=== PATIENT | male | born 1960 | race Hispanic/Latino ===

== ENCOUNTER 2019-04-23 21:48 | Emergency (ER) | payer OTHER, SELFPAY ==
[2019-04-23 22:05] VITALS: BP 117/80; PULSE 77; RESP 15; TEMP 36.8; O2SAT 97; BMI 28.6
--- NOTE | 2019-04-23 23:48 | ED_ITS ---
HPI - URI/Sore Throat General Chief Complaint: Upper Respiratory Symptoms Stated Complaint: cough Time Seen by Provider: 04/23/19 23:48 Source: patient Mode of arrival: Family Vehicle Limitations: no limitations History of Present Illness HPI Narrative: The patient complains of cough for 12 days. The cough is nonproductive. He has rhinorrhea. He has no ear pain, or sore throat. He has no sinus pressure/pain. He is a nonsmoker. He has no history of asthma or allergies. He has had no recent fever or chills. He tells me this happens about this time of the year every year. He has taken Tylenol, no other m edications. He has no cardiac or respiratory history. He is on no prescription medications. He has no associated abdominal pain, or nausea vomiting. He has no chest pain. He has no leg pain or swelling. Related Data Home Medications Medication Instructions Recorded Confirmed ibuprofen [Advil] #0 07/06/16 02/22/18 Previous Rx's Medication Instructions Recorded benzonatate 200 mg capsule 200 mg PO TID PRN #20 cap 02/22/18 mometasone 50 mcg/actuation nasal 2 spray NASAL DAILY #17 gram 02/22/18 spray Allergies Allergy/AdvReac Type Severity Reaction Status Date / Time No Known Allergies Allergy Uncoded 02/22/18 10:04 Review of Systems Review of Systems ROS Unobtainable: All systems reviewed & are unremarkable except as noted in HPI and below Constitutional Constitutional: Denies chills, Denies fever(s) and Denies headache(s) Eyes Eyes: Denies eye discharge ENT Ears, Nose, Mouth, and Throat: Denies facial pain, Denies headache(s), Denies mouth lesions, Denies mouth pain, Denies nasal congestion and Denies neck pain Cardiovascular Cardiovascular: Denies chest pain and Denies palpitations Respiratory Respiratory: Denies cough and Denies wheezing Gastrointestinal Gastrointestinal: Denies abdominal pain and Denies dyspepsia Musculoskeletal Musculoskeletal: Denies back pain and Denies neck pain Integumentary/Breasts Skin/Breast: Denies rash and Denies sores Neurologic Neurologic: Denies headache(s) Endocrine Endocrine: Denies palpitations Allergic/Immunologic Allergic/Immunologic: Denies wheezing Patient History Medical History BPH (benign prostatic hyperplasia) (Chronic) Colitis (Chronic) Duodenal ulcer (Chronic ~2013) Gastric ulcer (Chronic ~2014) Kidney stones (Chronic) Migraines (Chronic ~2017) Tuberculosis (Chronic) Surgical History Anesthesia (Resolved) History of esophagogastroduodenoscopy (EGD) (~2013) Social History Smoking Status: Never smoker Smoking Status: Never smoker alcohol intake frequency: 0-2 drinks per day Substance Use Type: does not use Exam Initial Vital Signs Initial Vital Signs: Vital Signs Temperature 98.2 F 04/23/19 22:05 Pulse Rate 77 04/23/19 22:05 Respiratory Rate 15 04/23/19 22:05 Blood Pressure 117/80 04/23/19 22:05 Pulse Oximetry 97 04/23/19 22:05 Const General: cooperative and well developed Nutritional Appearance: well nourished HENCO Head: normocephalic and atraumatic Nose: external nose normal Face and sinus: sinuses nontender Mouth: oral mucosae normal and moist mucous membranes Teeth and gingiva: dentition normal Throat: tonsils normal, uvula midline and other (Clear postnasal drainage is present.) Eyes Conjunctivae: conjunctivae normal Neck Neck: No lymphadenopathy and No JVD Resp Effort & Inspection: normal respiratory effort and able to speak in complete sentences Auscultation: clear to auscultation bilaterally, no rales, no rhonchi and no wheezes Cardio Rate: regular rate Rhythm: regular rhythm Heart Sounds: S1 normal, S2 normal, no click, no gallops and no murmurs Pulses: normal peripheral pulses GI Inspection: non-distended Palpation: soft, no hepatosplenomegaly, No guarding, No pulsatile mass and No tender Auscultation: normal bowel sounds Back/Spine/Pelvis Back: No CVA tenderness Skin General: no rashes or lesions noted Neuro General: alert, oriented x3, gait normal and no focal motor deficits Speech: speech normal Course Vital Signs Vital signs: Vital Signs - 8 hr 04/23/19 22:05 Temperature 98.2 F Pulse Rate 77 Respiratory Rate 15 Blood Pressure 117/80 Pulse Oximetry 97 Discharge Plan Departure Patient Disposition: Home Clinical Impression: Nasopharyngitis Instructions: Cough Activity Restrictions/Additional Instructions: Mucinex will help with the cough. This is available [id number]. Follow the package instructions. Recheck locally with your doctor in 1-2 weeks if symptoms persist. Return the ER if symptoms are significantly worse. Prescriptions: No Action ibuprofen [Advil] 100 MG tablet,chewable Qty: 0 RF: 0 benzonatate 200 mg capsule 200 mg PO TID PRN (Reason: cough) Qty: 20 RF: 0 mometasone 50 mcg/actuation spray,non-aerosol 2 spray NASAL DAILY Qty: 17 RF: 0
== END 2019-04-24 00:05 | disposition home or self-care (01) ==
PROVIDERS: Emergency Provider Emergency Medicine
DX: J00 Acute nasopharyngitis [common cold] (principal)
CPT/HCPCS: 99281

== ENCOUNTER → 2019-05-09 14:39 | Outpatient (CLI) | payer OTHER, SELFPAY ==
--- NOTE | 2019-05-09 14:46 | DI.RAD.S_ITS ---
PROCEDURE: XR CHEST 2V INDICATIONS: cough/fever x1 mo; r/o pneumonia TECHNIQUE: 2 views of the chest were acquired. COMPARISON: None. FINDINGS: Surgical changes and devices: None. Lungs and pleura: Lungs are clear. No pleural effusions or pneumothorax. Mediastinum: Mediastinal contours are normal. Heart size is normal. Bones and chest wall: No suspicious bony abnormalities. Soft tissues appear unremarkable. IMPRESSION: No acute cardiopulmonary pathology. Dictated by: Osorio Kerr M.D. on 05/09/2019 at 15:49 Approved by: Osorio Kerr M.D. on 05/09/2019 at 15:55
== END ==
PROVIDERS: Referring Provider Physician Assistant; Visit Provider Physician Assistant
DX: J40 Bronchitis, not specified as acute or chronic (principal); R05 Cough; R50.9 Fever, unspecified
CPT/HCPCS: 71046

== ENCOUNTER → 2020-03-11 07:25 | Outpatient (CLI) | payer OTHER, SELFPAY ==
[2020-03-11 07:34] LABS: Bacteria Urine None Seen; RBC Urine None Seen (0-5/HPF); WBC Urine None Seen (0-5/HPF)
[2020-03-11 07:46] LABS: Add Manual Diff / Slide Review NO; Basophils Absolute Auto 100 /uL (0-100); Basophils Percent Auto 0.9 % (0-2); Eosinophils Absolute Auto 300 /uL (0-450); Eosinophils Percent Auto 4.7 % (2-4); Hematocrit 47.4 % (41-53); Hemoglobin 15.9 g/dL (13.5-17.5); Lymphocytes Absolute Auto 3200 /uL (1100-4500); Lymphocytes Percent Auto 44.4 % (25-40); Mean Corpuscular HGB Conc 33.7 % (30-36); Mean Corpuscular Hemoglobin 31.2 PG (26-34); Mean Corpuscular Volume 92.7 fL (80-100); Monocytes Absolute Auto 800 /uL (0-900); Monocytes Percent Auto 11.3 % (3-14); Neutrophils Absolute Auto 2800 /uL (1500-7000); Neutrophils Percent Auto 38.7 % (50-75); Platelet Count 214 X10^3/uL (150-400); Red Blood Cell Count 5.11 X10^6/uL (4.5-5.9); Red Cell Distribution Width 13.6 % (11.6-14.8); White Blood Cell Count 7.1 X10^3/uL (4.5-11.0)
[2020-03-11 07:49] LABS: Appearance Urine UA CLEAR; Bilirubin Urine UA NEGATIVE (NEGATIVE); Color Urine UA YELLOW; Glucose Urine UA NEGATIVE (Negative); Ketones Urine UA NEGATIVE (NEGATIVE); Leukocyte Esterase Urine UA NEGATIVE (NEGATIVE); Nitrite Urine UA NEGATIVE (Negative); Occult Blood Urine UA NEGATIVE (Negative); Protein Urine UA NEGATIVE (Negative); Specific Gravity Urine UA 1.025 (1.000-1.035); Urobilinogen Urine UA 0.2 E.U./dL (0.2)
[2020-03-11 07:52] LABS: Culture Indicated Urine Cult Not Indicated; Urine Comments Microscopic Normal
[2020-03-11 08:00] LABS: Alanine Aminotransferase 24 IU/L (<50); Albumin Globulin Ratio 1.4 (1.0-2.8); Alkaline Phosphatase 74 U/L (38-126); Aspartate Aminotransferase 28 IU/L (17-59); BUN Creatinine Ratio 26.5 (6-22); Bilirubin Total 0.5 mg/dL (0.2-1.3); Blood Urea Nitrogen 26 mg/dL (9-20); Carbon Dioxide 31 mmol/L (22-32); Chloride 103 mmol/L (98-107); Cholesterol 191 mg/dL (140-199); Estimated Glomerular Filt Rate > 60.0 mL/min (>60); Globulin 2.8 g/dL (1.7-4.1); Glucose 105 mg/dL (70-100); HDL Cholesterol 40 mg/dL (40-60); HEMOLYSIS < 15 (0-50); LDL Cholesterol Calculated 119 mg/dL (<100); Potassium 3.9 mmol/L (3.4-5.1); Sodium 138 mmol/L (137-145); Total Protein 6.8 g/dL (6.3-8.2); Triglycerides 160 mg/dL (35-150)
[2020-03-11 08:29] LABS: Prostate Specific Antigen Scrn 0.617 ng/mL (0.1-4.0)
[2020-03-11 08:33] LABS: TSH w/ Reflex to FT4 2.87 uIU/mL (0.47-4.68)
== END ==
PROVIDERS: PCP Family Medicine; Referring Provider Family Medicine; Visit Provider Family Medicine
DX: Z00.00 Encounter for general adult medical examination without abnormal findings (principal); Z12.5 Encounter for screening for malignant neoplasm of prostate; Z13.220 Encounter for screening for lipoid disorders; Z13.228 Encounter for screening for other metabolic disorders; Z13.29 Encounter for screening for other suspected endocrine disorder; R30.0 Dysuria
CPT/HCPCS: 36415; 80053; 80061; 81001; 84443; 85025; G0103

== ENCOUNTER → 2020-04-22 08:33 | Outpatient (CLI) | payer OTHER, SELFPAY ==
[2020-04-22 08:55] LABS: COVID19 -Nasal RAPID Negative (Negative)
== END ==
PROVIDERS: PCP Family Medicine; Visit Provider Nurse Practitioner Family
DX: Z20.822 Contact with and (suspected) exposure to COVID-19 (principal)
CPT/HCPCS: 87635

== ENCOUNTER → 2020-06-30 14:41 | Outpatient (CLI) | payer OTHER, SELFPAY ==
[2020-06-30] MEDS: COVID-19 VACC #1, MRNA(MOD) 100 MCG/0.5 ML VIAL IM (14:50)
== END ==
PROVIDERS: PCP Family Medicine; Visit Provider Internal Medicine
DX: Z23 Encounter for immunization (principal)
CPT/HCPCS: 0011A; 91301

== ENCOUNTER → 2021-07-16 08:51 | Outpatient (CLI) | payer OTHER, SELFPAY ==
[2021-07-16 09:58] LABS: Add Manual Diff / Slide Review NO; Basophils Absolute Auto 0 /uL (0-100); Basophils Percent Auto 0.7 % (0-2); Eosinophils Absolute Auto 200 /uL (0-450); Eosinophils Percent Auto 2.9 % (2-4); Hematocrit 47.6 % (41-53); Hemoglobin 15.9 g/dL (13.5-17.5); Lymphocytes Absolute Auto 2300 /uL (1100-4500); Lymphocytes Percent Auto 35.9 % (25-40); Mean Corpuscular HGB Conc 33.4 % (30-36); Monocytes Absolute Auto 700 /uL (0-900); Monocytes Percent Auto 11.7 % (3-14); Neutrophils Absolute Auto 3100 /uL (1500-7000); Neutrophils Percent Auto 48.8 % (50-75); Platelet Count 204 X10^3/uL (150-400); Red Blood Cell Count 5.11 X10^6/uL (4.5-5.9); Red Cell Distribution Width 13.8 % (11.6-14.8); White Blood Cell Count 6.3 X10^3/uL (4.5-11.0)
[2021-07-16 11:03] LABS: Alanine Aminotransferase 23 IU/L (<50); Albumin 4.3 g/dL (3.5-5.0); Albumin Globulin Ratio 1.5 (1.0-2.8); Alkaline Phosphatase 64 U/L (38-126); Aspartate Aminotransferase 30 IU/L (17-59); BUN Creatinine Ratio 16.7 (6-22); Bilirubin Total 0.8 mg/dL (0.2-1.3); Blood Urea Nitrogen 16 mg/dL (9-20); Carbon Dioxide 27 mmol/L (22-32); Chloride 104 mmol/L (98-107); Cholesterol 200 mg/dL (140-199); Estimated Glomerular Filt Rate > 60 mL/min (>60); Globulin 2.9 g/dL (1.7-4.1); Glucose 105 mg/dL (70-100); HDL Cholesterol 47 mg/dL (40-60); HEMOLYSIS < 15 (0-50); LDL Cholesterol Calculated 131 mg/dL (<100); Potassium 4.7 mmol/L (3.4-5.1); Sodium 138 mmol/L (137-145); Total Protein 7.2 g/dL (6.3-8.2); Triglycerides 111 mg/dL (35-150)
[2021-07-16 11:24] LABS: Thyroid Stimulating Hormone 1.87 uIU/mL (0.47-4.68)
== END ==
PROVIDERS: PCP Family Medicine; Referring Provider Family Medicine; Visit Provider Family Medicine
DX: Z13.220 Encounter for screening for lipoid disorders (principal); Z13.6 Encounter for screening for cardiovascular disorders; Z00.00 Encounter for general adult medical examination without abnormal findings; Z12.5 Encounter for screening for malignant neoplasm of prostate; L85.3 Xerosis cutis; Z13.29 Encounter for screening for other suspected endocrine disorder
CPT/HCPCS: 36415; 80053; 80061; 84443; 85025; G0103

== ENCOUNTER 2021-08-19 22:18 | Emergency (ER) | payer OTHER, SELFPAY ==
[2021-08-19 22:18] VITALS: BP 149/95; PULSE 75; RESP 18; TEMP 36.2; O2SAT 96
--- NOTE | 2021-08-20 02:21 | DI.CT.S_ITS ---
PROCEDURE: CT HEAD/BRAIN WO CON INDICATIONS: headache sinus pressure x 1 month TECHNIQUE: Noncontrast 4.5 mm thick angled axial sections acquired from the foramen magnum to the vertex, with coronal and sagittal reformats. For radiation dose reduction, the following was used: automated exposure control, adjustment of mA and/or kV according to patient size. COMPARISON: None. FINDINGS: Image quality: Excellent. CSF spaces: Basal cisterns are patent. No extra-axial fluid collections. Ventricles are normal in size and shape. Brain: No midline shift. No intracranial masses or hemorrhage. Mcneal-white matter interface is normal. Skull and face: Calvarium and visualized facial bones are intact, without suspicious lesions. Sinuses: Partially visualized small mucous retention cyst versus polyp in the right maxillary sinus. The mastoids are clear. IMPRESSION: No acute intracranial disease process. Dictated by: Sheree Pham MD, PhD on 08/20/2021 at 7:28 Approved by: Sheree Pham MD, PhD on 08/20/2021 at 7:29
[2021-08-20] MEDS: KETOROLAC 30 MG/ML VIAL IM (02:47)
--- NOTE | 2021-08-20 02:55 | ED.HA ---
HPI - Headache General Chief Complaint: Headache Stated Complaint: Head ache and facial rash Time Seen by Provider: 08/20/21 02:11 Mode of arrival: Ambulatory History of Present Illness HPI Narrative: Patient is a 60-year-old speaking male who presents with ongoing headache for about 1 month. 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 To the front of his head it comes and goes. He feels like he has burning sensation beneath his eyes. No nausea vomiting no vision changes in fact he has been to the eye doctor twice in the last 1 month. He has or weakness. He has not had any neck pain or fevers. He cannot get into his primary care provider for couple more weeks. Should they decided to come to the ED tonight for further evaluation. No one else at home or at work as headaches. He takes Tylenol and ibuprofen for it which sometimes seems to help. Last dose of Tylenol was last night. No chest pain or palpitations. No fever chills. No abdominal pain. His they are concerned about possible diabetes he has no polydipsia or polyuria although daughter states that he does pee frequently. He denies any difficulty ambulating double vision blurry vision or any other symptoms Related Data Previous Rx's Medication Instructions Recorded budesonide-formoterol HFA 160 2 puff INHALATION BID PRN #10.2 g 07/19/21 mcg-4.5 mcg/actuation aerosol inhaler (Symbicort) pimecrolimus 1 % topical cream 1 applic TOPICAL BID #30 g 07/19/21 (Elidel) albuterol sulfate 90 mcg/actuation 2 puff INHALATION Q6H PRN #8.5 g 08/11/21 aerosol inhaler (ProAir HFA) Allergies Allergy/AdvReac Type Severity Reaction Status Date / Time No Known Drug Allergies Allergy Verified 07/16/21 08:11 Review of Systems Review of Systems Narrative: GENERAL: Denies chills, fatigue, malaise, fever, sweats, travel HEENT: Denies sinus pain, ear pain, sore throat, difficulty swallowing, neck pain RESPIRATORY: Denies dyspnea, cough, wheezing, hemoptysis, sputum. CARDIOVASCULAR: Denies chest pain, palpitations, orthopnea, edema GASTROINTESTINAL: Denies nausea, vomiting, abdominal pain, diarrhea, constipation, melena. : Denies dysuria, frequency, incontinence, hematuria, urinary retention, flank pain. MUSCULOSKELETAL: Denies weakness, joint pain, or bony pain SKIN: No rash, no erythema, no pruritus NEUROLOGIC: See HPI PSYCHIATRIC: No concerning psychosocial issues. 12 point review of systems is negative except for those stated above and HPI Patient History Medical History (Updated 08/20/21 @ 03:39 by Tram Henriquez DO) Adhesive capsulitis of left ankle BPH (benign prostatic hyperplasia) Colitis Duodenal ulcer (~2013) Dysuria Eczema Encounter for well adult exam without abnormal findings Gastric ulcer (~2014) Kidney stones Migraines (~2016) Tinea cruris Tuberculosis Well adult exam Surgical History Anesthesia History of esophagogastroduodenoscopy (EGD) (~2013) Social History Smoking Status: Former smoker alcohol intake: current (3 drinks every 2 wks ) substance use type: does not use Smoking Status: Former smoker alcohol intake frequency: a few times a month Substance Use Type: does not use Exam Initial Vital Signs Initial Vital Signs: Vital Signs Temperature 97.1 F L 08/19/21 22:18 Pulse Rate 75 08/19/21 22:18 Respiratory Rate 18 08/19/21 22:18 Blood Pressure 149/95 H 08/19/21 22:18 Pulse Oximetry 96 08/19/21 22:18 GENERAL: Alert well-appearing 60-year-old male and in no acute distress. HEENT: Head atraumatic,EOMI, pupils reactive, face symmetric, moist mucous membranes CARDIOVASCULAR: Regular rate and rhythm without murmurs, rubs or gallops. RESPIRATORY: Breath sounds equal bilaterally, no wheezes rales or rhonchi. ABDOMEN: Soft, nontender. Normoactive bowel sounds all 4 quadrants. No guarding or rebound. EXTREMITIES: Normal range of motion, no clubbing or edema. Neurovascularly intact NEUROLOGICAL: Alert and oriented x4.Normal gait and speech. Cranial nerves II through XII grossly intact. Good [id number], good [id number], strength equal bilaterally, no dysarthria or aphasia, sensation in tact to soft touch bilaterally, no visual changes, no facial droop SKIN: Warm, dry, no laceration, no petechiae, no rashes or lesions. Course Orders Ordered: Discontinued Medications Ketorolac Tromethamine (Ketorolac 30 Mg/Ml Vial) 30 mg IM NOW ONE Stop: 08/20/21 02:22 Last Admin: 08/20/21 02:47 Dose: 30 mg Documented by: LING Vital Signs Vital signs: Vital Signs - 8 hr 08/19/21 22:18 Temperature 97.1 F L Pulse Rate 75 Respiratory Rate 18 Blood Pressure 149/95 H Pulse Oximetry 96 MDM - Headache Lab Data Labs: Point of Care Testing Glucose POC [address] scan - head: Radiologist's Impression: Preliminary report: Unremarkable CT of the head MDM Narrative Medical decision making narrative: The patient overall appears well. He is afebrile he has no meningeal signs he has chronic ongoing headache. He feels burning under his eyes. There is no rash have refilled better after Toradol. He has only 1 with a headache and symptoms nausea with carbon monoxide. CT does not show any evidence of sinusitis do not think he needs antibiotics at this time symptoms are also not quite consistent. Overall patient feels better recommend outpatient follow-up with primary care provider. Discharge Plan Departure Patient Disposition: Home Clinical Impression: Headache Instructions: DI for Headache Activity Restrictions/Additional Instructions: *You have been diagnosed with headache *What to do: At this time CT scan of your head is negative. No need for antibiotics at this time. Continue fluid increase. *Continue to take medications as directed Tylenol 650 mg every 4-6 hours only if needed for pain Ibuprofen 600 mg every 6-8 hours only if needed for pain *Follow up with your primary care provider in 2-3 days or call [phone] *Return to ER if you should have weakness, numbness, tingling, vomiting or any new, worsening or concerning symptoms Prescriptions: No Action budesonide-formoterol [Symbicort] 160-4.5 mcg/actuation HFA aerosol inhaler 2 puff inhalation BID PRN (Reason: Asthma) Qty: 10.2 2RF pimecrolimus [Elidel] 1 % cream 1 applic topical BID Qty: 30 1RF albuterol sulfate [ProAir HFA] 90 mcg/actuation HFA aerosol inhaler 2 puff inhalation Q6H PRN (Reason: shortness of breath or wheezing) Qty: 8.5 3RF Referrals: Alexi Bradley, [Primary Care Provider] - Visit Report Forms: Patient Portal/API
[2021-08-20 03:37] VITALS: BP 140/81; PULSE 68; RESP 16; O2SAT 96
== END 2021-08-20 03:47 | disposition home or self-care (01) ==
PROVIDERS: Emergency Provider Emergency Medicine; PCP Family Medicine
DX: R51.9 Headache, unspecified (principal)
CPT/HCPCS: 70450; 82962; 96372; 99283; J1885

== ENCOUNTER 2022-01-27 17:01 | Emergency (ER) | payer OTHER, SELFPAY ==
[2022-01-27 17:31] VITALS: BP 140/92; PULSE 85; RESP 16; TEMP 36.2; O2SAT 99; BMI 27.6
[2022-01-27 18:07] LABS: Alanine Aminotransferase 31 IU/L (<50); Albumin 4.6 g/dL (3.5-5.0); Albumin Globulin Ratio 1.2 (1.0-2.8); Alkaline Phosphatase 83 U/L (38-126); Aspartate Aminotransferase 32 IU/L (17-59); BUN Creatinine Ratio 14.4 (6-22); Bilirubin Total 1.1 mg/dL (0.2-1.3); Blood Urea Nitrogen 14 mg/dL (9-20); Calcium 9.1 mg/dL (8.4-10.2); Carbon Dioxide 27 mmol/L (22-32); Chloride 100 mmol/L (98-107); Estimated Glomerular Filt Rate > 60 mL/min (>60); Globulin 3.8 g/dL (1.7-4.1); Glucose 94 mg/dL (80-110); HEMOLYSIS 23 (0-50); Lipase 40 U/L (23-300); Potassium 4.1 mmol/L (3.4-5.1); Sodium 138 mmol/L (137-145); Total Protein 8.4 g/dL (6.3-8.2)
[2022-01-27 18:11] LABS: Add Manual Diff / Slide Review NO; Basophils Absolute Auto 0 /uL (0-100); Basophils Percent Auto 0.3 % (0-2); Eosinophils Absolute Auto 100 /uL (0-450); Eosinophils Percent Auto 0.9 % (2-4); Hematocrit 49.9 % (41-53); Hemoglobin 17.1 g/dL (13.5-17.5); Lymphocytes Absolute Auto 1900 /uL (1100-4500); Mean Corpuscular HGB Conc 34.2 % (30-36); Mean Corpuscular Hemoglobin 31.3 PG (26-34); Mean Corpuscular Volume 91.7 fL (80-100); Monocytes Absolute Auto 1300 /uL (0-900); Monocytes Percent Auto 10.3 % (3-14); Neutrophils Absolute Auto 9300 /uL (1500-7000); Neutrophils Percent Auto 73.5 % (50-75); Platelet Count 216 X10^3/uL (150-400); Red Blood Cell Count 5.44 X10^6/uL (4.5-5.9); Red Cell Distribution Width 13.8 % (11.6-14.8); White Blood Cell Count 12.7 X10^3/uL (4.5-11.0)
[2022-01-27 21:05] VITALS: BP 127/86; PULSE 80; RESP 20; O2SAT 98
--- NOTE | 2022-01-27 21:14 | DI.CT.S_ITS ---
PROCEDURE: CT ABDOMEN PELVIS W CON INDICATIONS: left lower quadrant pain TECHNIQUE: After the administration of IV contrast, axial sections were acquired from the lung bases to the pubic symphysis. Coronal and sagittal reformats were performed. For radiation dose reduction, the following was used: automated exposure control, adjustment of mA and/or kV according to patient size. COMPARISON: [facility], CT, ABDOMEN/PELVIS WITH CONTRAST, 07/06/2016, 1:02. FINDINGS: Image quality: Excellent. Lung bases: There is mild dependent atelectasis. Heart: Heart is normal in size. ABDOMEN: Liver: No mass lesion. Gallbladder: Within normal limits without calcified gallstones. Biliary ducts: No biliary ductal dilatation. Pancreas: Unremarkable. Spleen: Normal in size. Adrenal Glands: No adrenal nodules. Kidneys and Ureters: No hydronephrosis. Stomach and Bowel: Stomach and small bowel loops are normal in caliber and wall thickness. The appendix is normal in appearance. There is colonic diverticulosis with associated diverticular and segmental colonic wall thickening in the proximal sigmoid colon as well as pericolonic fat stranding consistent with acute diverticulitis. No diverticular abscess or macroscopic free air. Peritoneum: No abnormal intraperitoneal fluid. No free air. Ventral Wall: No hernia. Abdominal Nodes: No retroperitoneal or mesenteric adenopathy by size criteria. Vessels: Aorta and inferior vena cava are normal in size. PELVIS: Pelvic Organs: Unremarkable. Bladder: Unremarkable. Pelvic Nodes: No enlarged lymph nodes. Miscellaneous: No inguinal hernias are seen. Bones: Visualized osseous structures demonstrate no suspicious focal lesions. IMPRESSION: 1. Acute sigmoid diverticulitis without evidence of diverticular abscess or macroscopic free air. Dictated by: Garrett Clark M.D. on 01/27/2022 at 22:28 Approved by: Garrett Clark M.D. on 01/27/2022 at 22:30
--- NOTE | 2022-01-27 21:15 | ED.ABDPAIN ---
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 He prefers his son to translate. But patient is able to speak [place] very well. Complains of 3 days left lower quadrant pain that is constant. Is pressure and twisting crampy pain. No urinary complaints. Sometimes radiates to left lower back. No penile pain. Had colonoscopy 8 years ago. No known history of diverticulosis or diverticulitis. No chest pain. No urinary complaints. No black or bloody stools. No diarrhea. No prior abdominal surgical history Related Data Previous Rx's Medication Instructions Recorded budesonide-formoterol HFA 160 2 puff inhalation BID PRN Asthma 07/19/21 mcg-4.5 mcg/actuation aerosol #10.2 grams inhaler (Symbicort) pimecrolimus 1 % topical cream 1 applic topical BID Apply lightly 07/19/21 (Elidel) to affected areas #30 grams albuterol sulfate 90 mcg/actuation 2 puff inhalation Q6H PRN 08/11/21 aerosol inhaler (ProAir HFA) shortness of breath or wheezing #8.5 grams pimecrolimus 1 % topical cream 1 applic topical BID #30 grams 08/27/21 (Elidel) ciprofloxacin HCl 500 mg tablet 500 mg PO BID #14 tabs 01/27/22 (Cipro) hydrocodone 5 mg-acetaminophen 325 1 tab PO Q6H PRN pain #20 tabs 01/27/22 mg tablet metronidazole 500 mg tablet 500 mg PO TID #21 tabs 01/27/22 promethazine 25 mg tablet 25 mg PO Q4-6H PRN nausea and 01/27/22 vomiting #14 tabs Allergies Allergy/AdvReac Type Severity Reaction Status Date / Time No Known Drug Allergies Allergy Verified 08/27/21 10:15 Review of Systems Review of Systems Narrative: GENERAL: Denies chills, fatigue, malaise, fever, sweats. HEENT: Denies sinus pain, ear pain, sore throat RESPIRATORY: Denies dyspnea, cough CARDIOVASCULAR: Denies chest pain, palpitations GASTROINTESTINAL: Denies nausea, vomiting, positive abdominal pain : Denies dysuria, frequency, hematuria MUSCULOSKELETAL: denies muscle or bony pain SKIN: Denies rash, skin lesions NEUROLOGIC: Denies weakness, numbness ROS Unobtainable: All systems reviewed & are unremarkable except as noted in HPI and below Patient History Medical History Adhesive capsulitis of left ankle BPH (benign prostatic hyperplasia) Colitis Duodenal ulcer (~2013) Dysuria Eczema Encounter for well adult exam without abnormal findings Gastric ulcer (~2014) Hyperlipidemia Kidney stones Migraines (~2016) Pre-diabetes Tinea cruris Tuberculosis Well adult exam Surgical History Anesthesia History of esophagogastroduodenoscopy (EGD) (~2013) Social History Smoking Status: Former smoker alcohol intake: current (3 drinks every 2 wks ) substance use type: does not use Smoking Status: Former smoker alcohol intake frequency: a few times a week Substance Use Type: does not use Exam Initial Vital Signs Initial Vital Signs: Vital Signs Temperature 97.1 F L 01/27/22 17:31 Pulse Rate 85 01/27/22 17:31 Respiratory Rate 16 01/27/22 17:31 Blood Pressure 140/92 H 01/27/22 17:31 Pulse Oximetry 99 01/27/22 17:31 Oxygen Delivery Method 01/27/22 17:31 Course Course Course Narrative: No new issues during course of stay Orders Ordered: ED Orders 01/27/22 17:34 EKG-12 Lead Stat 01/27/22 17:45 Complete Blood Count AUTO DIFF Stat Comprehensive Metabolic Panel Stat Lipase Stat 01/27/22 21:14 CT abdomen pelvis w con Stat Discontinued Medications Ciprofloxacin (Ciprofloxacin 250 Mg Tablet) 500 mg PO NOW ONE Stop: 01/27/22 23:32 Last Admin: 01/27/22 23:38 Dose: 500 mg Documented By: AP Sodium Chloride (Normal Saline 0.9%) 1,000 mls @ 1,000 mls/hr IV BOLUS ONE Stop: 01/27/22 22:13 Last Infusion: 01/27/22 22:30 Dose: 0 mls/hr Documented By: Admin: 01/27/22 21:25 Dose: 1,000 mls/hr Documented By: AP Metronidazole (Metronidazole 500 Mg Tablet) 500 mg PO NOW ONE Stop: 01/27/22 23:32 Last Admin: 01/27/22 23:38 Dose: 500 mg Documented By: AP Morphine Sulfate (Morphine 4 Mg/Ml Inj) 4 mg IV NOW ONE Stop: 01/27/22 21:15 Last Admin: 01/27/22 21:25 Dose: 4 mg Documented By: AP Ondansetron HCl (Ondansetron 4 Mg/2 Ml Inj) 4 mg IV NOW ONE Stop: 01/27/22 21:15 Last Admin: 01/27/22 21:25 Dose: 4 mg Documented By: AP Reevaluation(s) Reevaluation #1: Patient pain-free at this time. Reviewed results with patient, daughter is now at bedside and translating. They do understand diagnosis and treatment plan and follow up with General surgery for outpatient colonoscopy and for antibiotics and pain medication at home. Return precautions reviewed with them. They desire discharge home. Time: 23:20 Vital Signs Vital signs: Vital Signs - 8 hr 01/27/22 21:05 01/27/22 22:31 01/27/22 23:00 Pulse Rate 80 80 Respiratory Rate 20 18 Blood Pressure 127/86 132/87 134/84 Pulse Oximetry 98 98 Oxygen Delivery Method Room Air Room Air 01/27/22 23:30 Pulse Rate 76 Respiratory Rate 18 Blood Pressure 137/91 H Pulse Oximetry 98 Oxygen Delivery Method MDM - Abdominal Pain Differential Diagnosis Differential diagnosis: Likely abdominal pain, acute appendicitis, calculus of kidney, constipation, diverticulitis, pancreatitis and small bowel obstruction Lab Data Result diagrams: 01/27/22 17:45 01/27/22 17:45 Labs: Lab Results 01/27/22 01/27/22 Range/Units 17:45 17:45 WBC 12.7 H (4.5-11.0) X10^3/uL RBC 5.44 (4.5-5.9) X10^6/uL Hgb 17.1 (13.5-17.5) g/dL Hct 49.9 (41-53) % MCV 91.7 (80-100) fL MCH 31.3 (26-34) PG MCHC 34.2 (30-36) % RDW 13.8 (11.6-14.8) % Plt Count 216 (150-400) X10^3/uL Neut % (Auto) 73.5 (50-75) % Lymph % (Auto) 15.0 L (25-40) % Blair % (Auto) 10.3 (3-14) % Eos % (Auto) 0.9 L (2-4) % Baso % (Auto) 0.3 (0-2) % Neut # (Auto) 9300 H (5278-1019) /uL Lymph # (Auto) 1900 (1375-1313) /uL Blair # (Auto) 1300 H (0-900) /uL Eos # (Auto) 100 (0-450) /uL Baso # (Auto) 0 (0-100) /uL Sodium 138 (137-145) mmol/L Potassium 4.1 (3.4-5.1) mmol/L Chloride 100 (98-107) mmol/L Carbon Dioxide 27 (22-32) mmol/L BUN 14 (9-20) mg/dL Creatinine 0.97 (0.66-1.25) mg/dL Estimated GFR > 60 (>60) mL/min BUN/Creatinine Ratio 14.4 (6-22) Glucose 94 (80-110) mg/dL Calcium 9.1 (8.4-10.2) mg/dL Total Bilirubin 1.1 (0.2-1.3) mg/dL AST 32 (17-59) IU/L ALT 31 (<50) IU/L Alkaline Phosphatase 83 (38-126) U/L Total Protein 8.4 H (6.3-8.2) g/dL Albumin 4.6 (3.5-5.0) g/dL Globulin 3.8 (1.7-4.1) g/dL Albumin/Globulin Ratio 1.2 (1.0-2.8) Lipase 40 (23-300) U/L Point of care testing: Urine Dip Bedside Urine Glucose Negative Bedside Urine Bilirubin - Negative Bedside Urine Ketone - Negative Urine Specific [place] 1.02 Bedside Urine Occult Blood - Negative Bedside Urine pH 6 Bedside Urine Protein - Negative Bedside Urine Urobilinogen - Negative Bedside Urine Nitrite - Negative Bedside Urine Leukocytes - Negative Esterase Imaging Data CT scan - abdomen/pelvis: Radiologist's Impression: [address] [address] [address] Scan Report Signed Patient: Toni Martinez MR#: [id number] : 1960 Acct:[id number] Age/Sex: 61 / M Date of Service: 01/27/22 Loc: ED Accession Number: [id number] ?? Procedure: CT abdomen pelvis w con Ordering Provider: Charan Cristina MD PROCEDURE:? CT ABDOMEN PELVIS W CON ? INDICATIONS:? left lower quadrant pain ? TECHNIQUE:? After the administration of IV contrast, axial sections were acquired from the lung bases to the pubic symphysis.? Coronal and sagittal reformats were performed.? For radiation dose reduction, the following was used:? automated exposure control, adjustment of mA and/or kV according to patient size. ? COMPARISON:? [facility], CT, ABDOMEN/PELVIS WITH CONTRAST, 07/06/2016, 1:02. ? FINDINGS:? Image quality:? Excellent.? ? Lung bases:? There is mild dependent atelectasis.? ? Heart:? Heart is normal in size. ? ? ABDOMEN: Liver:? No mass lesion. Gallbladder:? Within normal limits without calcified gallstones.? ? Biliary ducts:? No biliary ductal dilatation.? ? Pancreas:? Unremarkable.? ? Spleen:? Normal in size.? ? Adrenal Glands:? No adrenal nodules.? ? Kidneys and Ureters:? No hydronephrosis.? ? ? Stomach and Bowel:? Stomach and small bowel loops are normal in caliber and wall thickness.? The appendix is normal in appearance.? There is colonic diverticulosis with associated diverticular and segmental colonic wall thickening in the proximal sigmoid colon as well as pericolonic fat stranding consistent with acute diverticulitis.? No diverticular abscess or macroscopic free air. Peritoneum:? No abnormal intraperitoneal fluid.? No free air.? ? Ventral Wall: ? No hernia.? Abdominal Nodes:? No retroperitoneal or mesenteric adenopathy by size criteria.? Vessels:? Aorta and inferior vena cava are normal in size.? ? PELVIS: Pelvic Organs:? Unremarkable.? ? Bladder:? Unremarkable.? ? Pelvic Nodes: No enlarged lymph nodes.? Miscellaneous: No inguinal hernias are seen. ? ? ? Bones:? Visualized osseous structures demonstrate no suspicious focal lesions. ? IMPRESSION:? ? 1. Acute sigmoid diverticulitis without evidence of diverticular abscess or macroscopic free air.? ? ? Dictated by: Garrett Clark M.D. on 01/27/2022 at 22:28 ? ? Approved by: Garrett Clark M.D. on 01/27/2022 at 22:30 ? MDM Narrative Medical decision making narrative: Appropriate for discharge home. Exam and laboratory studies and imaging otherwise reassuring. Pain is controlled. Return precautions reviewed with patient and family. Referral for General surgery outpatient follow-up for colonoscopy provided. They desire discharge home. Discharge Plan Departure Patient Disposition: Home Clinical Impression: Diverticulitis Instructions: DI for Diverticulitis Activity Restrictions/Additional Instructions: No driving or operating machinery tonight or when taking prescribed pain medication. Prescription for antibiotics have been sent to your [facility] pharmacy in [place]. Be sure to continue them tomorrow. Pain medication has been written here for you. General surgery office has been provided for you to call tomorrow to make an appointment for office recheck in 2 weeks. Return if worse if any questions or concerns. Prescriptions: New hydrocodone-acetaminophen 5-325 mg tablet 1 tab PO Q6H PRN (Reason: pain) Qty: 20 0RF promethazine 25 mg tablet 25 mg PO Q4-6H PRN (Reason: nausea and vomiting) Qty: 14 0RF ciprofloxacin HCl [Cipro] 500 mg tablet 500 mg PO BID Qty: 14 0RF metronidazole 500 mg tablet 500 mg PO TID Qty: 21 0RF No Action budesonide-formoterol [Symbicort] 160-4.5 mcg/actuation HFA aerosol inhaler 2 puff inhalation BID PRN (Reason: Asthma) Qty: 10.2 2RF pimecrolimus [Elidel] 1 % cream 1 applic topical BID Qty: 30 1RF albuterol sulfate [ProAir HFA] 90 mcg/actuation HFA aerosol inhaler 2 puff inhalation Q6H PRN (Reason: shortness of breath or wheezing) Qty: 8.5 3RF pimecrolimus [Elidel] 1 % cream 1 applic topical BID Qty: 30 1RF Rx Instructions: Apply sparingly to affected area Referrals: Mendel Manning MD [Physician] - Alexi Bradley DO [Primary Care Provider] - Visit Report Forms: Patient Portal/API
[2022-01-27] MEDS: ONDANSETRON 4 MG/2 ML INJ IV (21:25)
[2022-01-27] MEDS: SODIUM CHLORIDE 0.9% 1,000 ML 1000 ML IV (21:25)
[2022-01-27] MEDS: MORPHINE 4 MG/ML INJ IV (21:25)
[2022-01-27 22:31] VITALS: BP 132/87; PULSE 80; RESP 18; O2SAT 98
[2022-01-27 23:00] VITALS: BP 134/84
[2022-01-27 23:30] VITALS: BP 137/91; PULSE 76; RESP 18; O2SAT 98
[2022-01-27] MEDS: CIPROFLOXACIN 250 MG TABLET 500 MG PO (23:38)
[2022-01-27] MEDS: metroNIDAZOLE 500 MG TABLET PO (23:38)
== END 2022-01-27 23:50 | disposition home or self-care (01) ==
PROVIDERS: Emergency Medicine; Emergency Provider Emergency Medicine; PCP Family Medicine
DX: K57.92 Diverticulitis of intestine, part unspecified, without perforation or abscess without bleeding (principal)
CPT/HCPCS: 74177; 80053; 81003; 83690; 85025; 96361; 96374; 96375; 99284; J2270; J2405; Q9967

== ENCOUNTER → 2022-03-15 06:45 | Day surgery (SDC) | payer OTHER, SELFPAY ==
[2022-03-15] MEDS: LACTATED RINGERS 1,000 ML 42 ML IV (07:18)
[2022-03-15 07:24] VITALS: BP 136/84; PULSE 86; RESP 16; TEMP 36.5; O2SAT 98; BMI 28.8
[2022-03-15 07:31] LABS: COVID19 -Nasal RAPID Negative (Negative)
--- NOTE | 2022-03-15 07:35 | PM.HP.1 ---
History of Present Illness History of Present Illness Date Patient Seen: 03/15/22 Time Patient Seen: 07:[address] [facility] [place] Narrative: Colon cancer screening, second scoping, treated 2 weeks ago for diverticulitis. Patient History Medical History Adhesive capsulitis of left ankle BPH (benign prostatic hyperplasia) Colitis Diverticulosis Duodenal ulcer (~2013) Dysuria Eczema Encounter for well adult exam without abnormal findings Gastric ulcer (~2014) Hyperlipidemia Kidney stones Migraines (~2016) Pre-diabetes Skin lesion Tinea cruris Tuberculosis Well adult exam Surgical History Anesthesia History of esophagogastroduodenoscopy (EGD) (~2013) Family & Social History Social History: household members family Tobacco & Substance use: Smoking Status Former smoker alcohol intake current alcohol intake frequency a few times a month Substance Use Type does not use Meds Home Medications and Allergies Allergies Allergy/AdvReac Type Severity Reaction Status Date / Time No Known Drug Allergies Allergy Verified 03/15/22 07:19 Review of Systems Review of Systems Narrative: no abdominal pain at this time ROS: Yes All systems reviewed with the patient and are negative except as otherwise documented Exam Vital Signs (past 8 hours): - 03/15/22 07:24 Temperature 97.7 F Pulse Rate 86 Respiratory Rate 16 Blood Pressure 136/84 Pulse Oximetry 98 Oxygen Delivery Method Room Air Oxygen Delivery Method Room Air Const General: cooperative and healthy appearing HENNM Head: normal to inspection, normocephalic and atraumatic Eyes General: appearance normal, both eyes and all related structures Neck Neck: trachea midline Chest Chest: normal inspection of the chest Resp Effort & Inspection: normal respiratory effort and able to speak in complete sentences Cardio Rate: regular rate Rhythm: regular rhythm GI Palpation: soft Skin General: no rashes or lesions noted Neuro General: patient alert, patient awake and patient oriented x3 Cognition: normal cognition Extrem General: normal to inspection Psych Appearance: grossly normal Mental Status: mental status grossly normal Judgment: judgment good Objective Labs Labs: Laboratory Results - last 24 hr 03/15/22 07:00 SARS-CoV-2 (PCR) Negative Assessment & Plan Assessment & Plan narrative: Colon cancer screening with colonoscopy using MAC COVID-19 COVID-19 status: Negative Time Spent With Patient Time with patient: less than 30 minutes Critical Care time: I spent a total of [] minutes of critical care time on this patient's care today; this time is exclusive of procedural time.
--- NOTE | 2022-03-15 07:49 | SUR.PREOP ---
Procedure Canceled Patient reports having recent ER visit for Diverticulitis. CT scan from ER Visit assessed by Dr. Ryan and discussed risks of colonoscopy with diverticulitis with patient and daughter. Both verbalized understanding. Colonoscopy canceled by Dr. Ryan. IV discontinued and patient discharged. Patient left with clothing and wallet.
== END | disposition home or self-care (01) ==
PROVIDERS: PCP Family Medicine; Referring Provider Surgery; Visit Provider Surgery
DX: Z12.11 Encounter for screening for malignant neoplasm of colon (principal); Z20.822 Contact with and (suspected) exposure to COVID-19; Z53.09 Procedure and treatment not carried out because of other contraindication
CPT/HCPCS: 87635

== ENCOUNTER 2022-08-25 07:38 | Day surgery (SDC) | payer OTHER, SELFPAY ==
[2022-08-25 07:51] VITALS: BP 142/90; PULSE 76; RESP 17; TEMP 35.9; O2SAT 98; BMI 28.8
[2022-08-25] MEDS: LACTATED RINGERS 1,000 ML 120 ML IV (08:10)
--- NOTE | 2022-08-25 08:15 | PM.HP.1 ---
History of Present Illness History of Present Illness Date Patient Seen: 08/25/22 Time Patient Seen: 08:15 Chief complaint: SDC Narrative: Toni is here for his colonoscopy. No changes since his office visit. No new rectal bleeding. [facility] Medical History Adhesive capsulitis of left ankle BPH (benign prostatic hyperplasia) Colitis Diverticulosis Duodenal ulcer (~2013) Dysuria Eczema Encounter for well adult exam without abnormal findings Gastric ulcer (~2014) Hyperlipidemia Kidney stones Migraines (~2016) Pre-diabetes Skin lesion Tinea cruris Tuberculosis Well adult exam Surgical History Anesthesia History of esophagogastroduodenoscopy (EGD) (~2013) Social History household members: family Smoking Status: Never smoker alcohol intake: current substance use type: does not use Meds Home Medications and Allergies Home Medications Medication Instructions Recorded Confirmed Type No Known Home Medications 07/20/22 08/25/22 History Allergies Allergy/AdvReac Type Severity Reaction Status Date / Time No Known Drug Allergies Allergy Verified 08/25/22 07:49 Exam Vital Signs (past 8 hours): - 08/25/22 07:51 Temperature 96.6 F L Pulse Rate 76 Respiratory Rate 17 Blood Pressure 142/90 H Pulse Oximetry 98 Oxygen Delivery Method Room Air Oxygen Delivery Method Room Air Const General: No acute distress Assessment & Plan Assessment and plan (1) Rectal bleeding: Status: Acute Plan We discussed the risks and benefits of colonoscopy and he would like to proceed.
[2022-08-25 09:10] VITALS: BP 112/79; PULSE 67; RESP 18; TEMP 36.9; O2SAT 97
--- NOTE | 2022-08-25 09:10 | PM.OP.COLON ---
Operative Date/Time/Diagnoses Date of procedure: 08/25/22 Time of procedure: 09:10 Pre-op diagnosis: Rectal bleeding Post-op diagnosis: same Procedure & Clinicians Study performed: Colonoscopy Same procedure as scheduled: Yes Surgeon: Mendel Manning Procedure Notes Procedure in detail: Surgeon: Mendel Manning MD Anesthesia: Sondra Escamilla SERVICE DISMANTLER Procedure: The patient was brought to the endoscopy suite, placed in left lateral decubitus position. The patient was connected to monitoring devices. A time-out was performed. Sedation was administered. Once the patient was adequately sedated, a digital rectal exam was performed and was normal. The scope was then inserted and advanced to the cecum where the appendiceal orifice was identified and photographed. The scope was then slowly withdrawn over greater than 6 minutes. The mucosa was thoroughly inspected. No abnormalities were found. The scope was retroflexed in the rectum. Some mild internal hemorrhoids were noted. The scope was straightened and removed. The patient was awakened and brought to recovery. Scope withdrawal time: 10 minutes Sedation time: 13 minutes EBL: 0 Findings: Mild internal hemorrhoids Post-procedure Recommendations: Colonoscopy in 10 years Disposition: PACU
[2022-08-25 09:16] VITALS: BP 109/79; PULSE 63; RESP 17; TEMP 36.7; O2SAT 96
[2022-08-25 09:21] VITALS: BP 109/79; PULSE 59; RESP 16; TEMP 36.7; O2SAT 95
[2022-08-25 09:23] VITALS: BP 122/84
[2022-08-25 09:29] VITALS: BP 114/90; PULSE 58; RESP 16; TEMP 36.2; O2SAT 98
== END 2022-08-25 09:36 | disposition home or self-care (01) ==
PROVIDERS: PCP Family Medicine; Referring Provider Surgery; Visit Provider Surgery
PROC: 0DJD8ZZ Inspection of Lower Intestinal Tract, Via Natural or Artificial Opening Endoscopic (ICD-10-PCS; CPT 45378; principal; 2022-08-25 08:45)
DX: K62.5 Hemorrhage of anus and rectum (principal); K64.8 Other hemorrhoids
CPT/HCPCS: 45378; J2704

== ENCOUNTER → 2023-02-16 10:05 | Outpatient (CLI) | payer OTHER, SELFPAY ==
[2023-02-16 11:05] LABS: Hemoglobin A1C% w Est Avg Glu 5.6 % (4.0-6.0)
[2023-02-16 11:26] LABS: Alanine Aminotransferase 27 IU/L (<50); Albumin Globulin Ratio 1.3 (1.0-2.8); Alkaline Phosphatase 67 U/L (38-126); Aspartate Aminotransferase 29 IU/L (17-59); Bilirubin Total 0.9 mg/dL (0.2-1.3); Blood Urea Nitrogen 16 mg/dL (9-20); Calcium 9.5 mg/dL (8.4-10.2); Carbon Dioxide 27 mmol/L (22-32); Chloride 105 mmol/L (98-107); Cholesterol 187 mg/dL (140-199); Estimated Glomerular Filt Rate > 60 mL/min (>60); Globulin 3.1 g/dL (1.7-4.1); Glucose 103 mg/dL (80-110); HDL Cholesterol 42 mg/dL (40-60); HEMOLYSIS < 15 (0-50); LDL Cholesterol Calculated 126 mg/dL (<100); Potassium 4.5 mmol/L (3.4-5.1); Sodium 138 mmol/L (137-145); Total Protein 7.1 g/dL (6.3-8.2); Triglycerides 96 mg/dL (35-150)
[2023-02-16 11:52] LABS: Prostate Specific Antigen 0.999 ng/mL (0.10-4.00)
== END ==
PROVIDERS: PCP Family Medicine; Referring Provider Family Medicine; Visit Provider Family Medicine
DX: R73.03 Prediabetes (principal); E78.5 Hyperlipidemia, unspecified; K57.90 Diverticulosis of intestine, part unspecified, without perforation or abscess without bleeding
CPT/HCPCS: 36415; 80053; 80061; 83036; 84153

== ENCOUNTER → 2023-12-05 08:05 | Outpatient (CLI) | payer OTHER, SELFPAY | PROVIDERS: PCP Family Medicine; Referring Provider Family Medicine; Visit Provider Family Medicine | DX: J45.909 Unspecified asthma, uncomplicated (principal); R94.2 Abnormal results of pulmonary function studies | CPT/HCPCS: 94060; 94726; 94729 ==